=== PATIENT | female | born 1990 | race Caucasian/White ===

== ENCOUNTER 2019-09-13 07:35 | Inpatient (IN) ==
[2019-09-13] MEDS ORDERED: OXYTOCIN 30 UNITS/500 ML BAG IV PRN ×3 (07:55→19:46)
--- NOTE | 2019-09-13 08:12 | History & Physical Report ---
Date of Service September 13, 2019 Assessment & Plan (1) : 29 yo @ 39.2 here for IOL complicated by IUGR, h/o preeclampsia - admits, IV, labs - continue to augment as needed Labs: GBS -, A+, antibody negative, HIV negative, Rubella immune, RPR non reactive, Hep B -, G/C not detected H/O pre-eclampsia on 81 mg ASA since 12 weeks - asymptomatic, BP wnl - continue to monitor Fetus - FHTScategory 1 - continue monitoring History of Present Illness Chief Complaint: IOL Primary Care Provider: ESPERANZA Carrasco Rhona Hannon is a 29 yo @ 39 weeks 2 days here for induction complicated by IUGR and history of pre eclampsia with a prior . She has not had any elevated blood pressures this . She has not felt any contractions, no loss of fluid, no bleeding, no loss of mucus plug. She is taking 81 mg of ASA that she has taken since 12 weeks of . She denies any allergies. She breastfeed her prior babies and plans to breastfeed. Allergies Allergy/AdvReac Type Severity Reaction Status Date / Time No Known Allergies Allergy Verified 09/09/19 08:29 Home Medications Home Medications Medication Instructions Recorded Confirmed Type prenat.vits,spencer,kuo-eefq-yoqhy 1 tab PO DAILY 02/25/19 09/13/19 History aspirin 1 cap PO DAILY MDD 81 04/04/19 09/13/19 History breast pump #1 ea 08/22/19 09/09/19 Rx breast pump #1 ea 09/06/19 09/09/19 Rx Patient History Medical History Elevated blood pressure affecting , antepartum (Resolved) Encounter for anatomic survey Gestational hypertension w/o significant proteinuria in 3rd trimester (Resolved) History of chlamydia History of pre-eclampsia History of varicella Family History Mother Hypertension Son Hirschsprung's disease Social History Preferred Language: Kyrgyz Communication Ability: Effective Manager Dairy Required: No Beliefs That Will Affect Care: None marital status: marital status details: Daniel Hannon (30) [phone] Current Living Situation: Spouse Current Living Situation Comment: with children, 2 dogs, 1 cat, changing litter current occupational status: employed current occupation: message therapist Other Information That Helps Us Care for You: No Feels Safe at Home: Yes Safety Concerns: Feels Safe At This Time Smoking Status: Former smoker Hx Alcohol Use: No Hx Substance Use: No Review of Systems Denies fever, chills, sweats Denies shortness of breath, difficulty breathing, chest pain, palpitations, chest pressure. Denies dysuria. Denies headache. Denies: double vision, RUQ pain, lower extremity swelling Physical Exam Physical Exam: General: Alert, oriented. No acute distress. Cardiac: Regular rate and rhythm, no murmurs/rubs/gallops. Respiratory: Clear to auscultation anterior and posteriorly, no wheezes/rales/rhonchi. No increased work of breathing. Symmetrical chest rise. No respiratory distress. Abdomen: Gravid, Vertex, Bowel sounds present. Lower Extremities: No lower extremity edema or swelling. No deep calf pain. Genie's negative bilaterally. Results & Data Vital Signs (Past 12 Hours) Vital Signs Pulse BP 09/13/19 07:41 83 119/66 Monitoring External Monitor Category 1 - baseline rate 150 - moderate variability - no early decelerations, no late decelerations, no variable decelerations Supervising Physician Co-Signing Physician Notes Resident Physician Supervision Note: I interviewed and examined the patient. Discussed with Dr. Bernal and agree with findings and plan as documented in the note. Any exceptions or clarifications are listed here: Patient is a 29yowf being induced today for suspected IUGR. Testing has been reassuring. Reassuring testing. Cervix favorable--4/75/-2, efw 6-7#, fetus category one. Anticipate . Documented By: Brielle Mayes MD, FACOG Resident Activity Tracking Resident Involvement: Resident Care Provided Care Provided: OB Delivery
[2019-09-13 08:28] LABS: Hematocrit (blood only) 30.9 % (37-47); Mean Corpuscular Hemoglobin 28.6 pg (25-34); Mean Corpuscular Volume 88.3 fL (80-100); Mean Platelet Volume 10.9 fL (7.4-10.4); Platelet Count 241 K/uL (130-400); RDW Coefficient of Variation 14.5 % (11.5-14.5); RDW Standard Deviation 46.6 fL (36.4-46.3); White Blood Count 6.96 K/uL (4.8-10.8)
[2019-09-13 08:29] LABS: Mean Corpuscular Hgb Conc 32.4 g/dL (32-36)
[2019-09-13] MEDS: LACTATED RINGER'S 1,000 ML IV PRN ×3 (09:05→18:10)
--- NOTE | 2019-09-13 11:54 | Labor Progress Brief Note ---
Date of Service September 13, 2019 Subjective noting some contractions Assessment & Plan (1) IUGR (intrauterine growth restriction) affecting care of mother: continue current management. Hopes to go unmedicated. fetus category one. anticipate . Physical Exam Constitutional: WD/WN, vitals as above Psychiatric: A+Ox3, euthymic affect Genitourinary: cx--unchanged arom--copious clear toco--q2-3min, pit at 10 efm--150s with mod variability, accels to 180s, no decels Results & Data Vital Signs (Past 12 Hours) Vital Signs Temp Pulse Resp BP 09/13/19 11:10 36.8 C 71 18 112/66 09/13/19 10:08 84 121/74 09/13/19 09:04 79 16 125/58 L 09/13/19 07:41 36.5 C 83 18 119/66 09/13/19 07:33 36.5 C 18 Coding Level of Care Code None Diagnoses IUGR (intrauterine growth restriction) affecting care of mother O36.5990
--- NOTE | 2019-09-13 15:13 | Labor Progress Brief Note ---
Date of Service September 13, 2019 Subjective Getting uncomfortable Assessment & Plan (1) IUGR (intrauterine growth restriction) affecting care of mother: Continue current management. fetus category one. anticipate . Physical Exam Constitutional: WD/WN, vitals as above Psychiatric: A+Ox3, euthymic affect Genitourinary: cx--//-2 toco--q2-4min, efm--135 with mod variability, accels to 150s, no decels Results & Data Vital Signs (Past 12 Hours) Vital Signs Temp Pulse Resp BP 09/13/19 14:58 36.5 C 71 20 121/69 09/13/19 14:06 71 18 125/73 09/13/19 12:51 36.7 C 71 20 124/65 09/13/19 12:07 74 18 113/62 09/13/19 11:10 36.8 C 71 18 112/66 09/13/19 10:08 84 121/74 09/13/19 09:04 79 16 125/58 L 09/13/19 07:41 36.5 C 83 18 119/66 09/13/19 07:33 36.5 C 18 Coding Level of Care Code None Diagnoses IUGR (intrauterine growth restriction) affecting care of mother O36.5990
[2019-09-13] MEDS ORDERED: fentaNYL citrate 100 MCG/2 ML VIAL ONE (16:01)
[2019-09-13] MEDS ORDERED: BUPIVACAINE 0.25% 30 ML VIAL ONE (16:01)
[2019-09-13] MEDS ORDERED: ePHEDrine sulfate 50 MG/ML AMP ONE (16:01)
[2019-09-13] MEDS ORDERED: fentaNYL 2MCG/ML ROPIV 1.25MG/ML 100 ML BAG EPI ONE (16:02)
--- NOTE | 2019-09-13 16:11 | Anesthesiology Consultation ---
Date of Service September 13, 2019 Assessment & Plan (1) Encounter for pre-operative examination: Chart Review Chart Review: Acceptable Risk for Labor Epidural History Height/Weight Height: 5 ft Weight: 72.121 kg Allergies Allergy/AdvReac Type Severity Reaction Status Date / Time No Known Allergies Allergy Verified 09/09/19 08:29 Medications Home Medications Medication Instructions Recorded Confirmed Last Taken prenat.vits,spencer,bpu-quoi-vsmdj 1 tab PO DAILY 02/25/19 09/13/19 1 Day Ago ~09/12/19 aspirin 1 cap PO DAILY MDD 81 04/04/19 09/13/19 1 Day Ago ~09/12/19 breast pump #1 ea 08/22/19 09/09/19 Unknown breast pump #1 ea 09/06/19 09/09/19 Unknown Active Medications Generic Name Dose Route Start Last Admin Trade Name Freq PRN Reason Stop Dose Admin Lactated Ringer's 1,000 mls @ 125 mls/hr 09/13/19 07:55 09/13/19 15:51 Lr IV 09/15/19 07:54 125 mls/hr .Q8H PRN Administration L&D Protocol Protocol Oxytocin 30 units in 500 mls @ 16 mls/hr 09/13/19 07:55 09/13/19 15:00 Pitocin IV 09/15/19 07:54 0.96 units/hr .Q24H PRN 16 mls/hr Labor Induction/Augmentation Titration Protocol 0.96 UNITS/HR NPO Last Intake of Fluids Comment: Sips Date Last Intake of Solids: 09/12/19 Past Medical History Medical History Elevated blood pressure affecting , antepartum (Resolved) Encounter for anatomic survey Gestational hypertension w/o significant proteinuria in 3rd trimester (Resolved) History of chlamydia History of pre-eclampsia History of varicella Past Family History Family History Mother Hypertension Son Hirschsprung's disease Social History Smoking Status: Former smoker Hx Alcohol Use: No alcohol intake frequency: 0-2 drinks per day Hx Substance Use: No substance use type: does not use Physical Exam Vital Signs Last Vital Signs Temp 36.5 C 09/13/19 14:58 Pulse 71 09/13/19 14:58 Resp 20 09/13/19 14:58 BP 121/69 09/13/19 14:58 Testing Laboratory Results 09/13/19 08:06
[2019-09-13] MEDS ORDERED: NALOXONE HCL 1 MG in SODIUM CHLORIDE 0.9% 1000ML 1,000 ML IV PRN (16:46)
[2019-09-13] MEDS ORDERED: ePHEDrine sulfate 50 MG/ML AMP IV PRN (16:46)
[2019-09-13] MEDS ORDERED: fentaNYL 2MCG/ML ROPIV 1.25MG/ML 100 ML BAG EPI PRN (16:46)
[2019-09-13] MEDS ORDERED: NALOXONE HCL 0.4 MG/1 ML VIAL/CARP IV PRN (16:46)
[2019-09-13] MEDS ORDERED: ONDANSETRON INJ 2 MG/ML 2 ML VIAL IV PRN (16:46)
--- NOTE | 2019-09-13 17:30 | Labor Progress Brief Note ---
Date of Service September 13, 2019 Subjective comfortable Assessment & Plan (1) IUGR (intrauterine growth restriction) affecting care of mother: continue current management. fetus category two, reassuring, anticipate . Physical Exam Constitutional: WD/WN, vitals as above Psychiatric: A+Ox3, euthymic affect Genitourinary: cx--8/0 toco--q2-3, pit at 12 efm--130s with mod variability, variables with contractions, +scalp stim Results & Data Vital Signs (Past 12 Hours) Vital Signs Temp Pulse Resp BP Pulse Ox 09/13/19 17:23 58 L 98 09/13/19 17:18 64 98 09/13/19 17:13 63 98 09/13/19 17:08 63 97 09/13/19 17:06 61 114/59 L 09/13/19 17:03 80 98 09/13/19 16:58 63 96 09/13/19 16:54 87 120/68 09/13/19 16:53 82 98 09/13/19 16:49 100 H 115/64 09/13/19 16:48 101 H 118/67 96 09/13/19 16:44 36.5 C 78 18 119/67 09/13/19 16:43 75 97 09/13/19 16:42 99 H 93 09/13/19 16:39 80 118/58 L 09/13/19 16:38 77 97 09/13/19 16:33 75 133/86 100 09/13/19 16:28 68 145/83 H 97 09/13/19 16:23 71 149/104 H 100 09/13/19 16:16 66 139/68 09/13/19 14:58 36.5 C 71 20 121/69 09/13/19 14:06 71 18 125/73 09/13/19 12:51 36.7 C 71 20 124/65 09/13/19 12:07 74 18 113/62 09/13/19 11:10 36.8 C 71 18 112/66 09/13/19 10:08 84 121/74 09/13/19 09:04 79 16 125/58 L 09/13/19 07:41 36.5 C 83 18 119/66 09/13/19 07:33 36.5 C 18 Coding Level of Care Code None Diagnoses IUGR (intrauterine growth restriction) affecting care of mother O36.5990
--- NOTE | 2019-09-13 19:15 | Delivery Summary ---
Vaginal Delivery Summary Date of Service September 13, 2019 Vaginal Delivery Summary Pre-operative Diagnosis: at 39 weeks iugr Post-operative Diagnosis: same Procedure: pitocin induction arom epidural EBL: 300cc Anesthesia: epidural Procedure: The patient pushed for one contraction to deliver a viable male in doa position. The nose and mouth were bulb suctioned on the perineum. A tight nuchal cord was clamped and cut on the perineum. The rest of the baby was then delivered without difficulty. The baby was vigorous. The nose and mouth were again bulb suctioned and the infant was placed in the maternal abdomen for drying and attention. Cord blood and segment obtained. Placenta delivered spontaneous, intact with a three vessel cord. Cervix/sulci/rectum/perineum were intact. Hemostasis obtained with dilute pitocin and fundal massage. Apgars were 8/9. Mother and baby doing well at the end of the delivery. [facility] [place] Vaginal Delivery Charge Vaginal Delivery Codes: 36048 global code for the antepartum, delivery, and post-
[2019-09-13] MEDS ORDERED: OXYCODONE/ACETAMINOPHEN 5mg/325mg TAB PO PRN (19:37)
[2019-09-13] MEDS ORDERED: BENZOCAINE 20% AER SPR 82.5 GM CAN EXT PRN (19:46)
[2019-09-13] MEDS ORDERED: SUPERCREAM 0.870% 15 GM JAR EXT PRN (19:46)
[2019-09-13] MEDS ORDERED: DIPHTHERIA/TETANUS/PERTUSSIS 0.5 ML SYR/VIAL IM ONE (19:46)
[2019-09-13] MEDS ORDERED: HYDROCORTISONE ACETATE 25 MG SUPP PR PRN (19:46)
--- NOTE | 2019-09-13 20:10 | Anesthesia Procedure Note ---
Date of Service September 13, 2019 Anesthesia Post Epidural Note Vital Signs Vital Signs: Temp Pulse Resp BP Pulse Ox 36.5 C 76 20 128/84 98 09/13/19 16:44 09/13/19 19:57 09/13/19 19:57 09/13/19 19:57 09/13/19 19:08 Pain Intensity Bilateral Abdomen: Pain Intensity: 0 Notes Mental Status: alert / awake / arousable and participated in evaluation Nausea / Vomiting: adequately controlled Pain: adequately controlled Airway Patency, RR, SpO2: stable & adequate BP & HR: stable & adequate Hydration State: stable & adequate Neuraxial Anesthesia: was administered and sensory block is resolving Anesthetic Complications: no major complications apparent Epidural: Removed without complications and With tip intact
[2019-09-13] MEDS: IBUPROFEN 600 MG TAB PO PRN (20:46)
[2019-09-13] MEDS: DOCUSATE SODIUM 100 MG CAP PO SCH (21:29)
[2019-09-14] MEDS: IBUPROFEN 600 MG TAB PO PRN ×4 (03:18→20:52)
[2019-09-14] MEDS: ACETAMINOPHEN 325 MG TAB PO PRN ×3 (05:48→18:08)
[2019-09-14 05:52] LABS: Hematocrit (blood only) 27.6 % (37-47); Hemoglobin 9.1 g/dL (12.0-16.0)
--- NOTE | 2019-09-14 06:28 | Obstetrical Progress Note ---
Date of Service September 14, 2019 Assessment & Plan Admission and Anticipated Discharge Date Admission Date: September 13, 2019 29 yo s/p induced VD @ 39.2 complicated by suspected IUGR and H/O pre eclampsia with prior - PPD# 1 - GBS -, Blood Type A+ - Feels well today. Eating well, voiding well, ambulating well. - Pain well controlled. - Routine post care - After discharge will have [address] Mayes. Supervising Physician Co-Signing Physician Notes Resident Physician Supervision Note: I interviewed and examined the patient. Discussed with Dr. Bernal and agree with findings and plan as documented in the note. Any exceptions or clarifications are listed here: Doing well. Routine pp care. Documented By: Brielle Mayes MD, FACOG Subjective Rhona Hannon is doing well this morning, she is walking, voiding, passing gas and eating a regular diet without nausea. Her bleeding is described as a heavy period. She is and describes it as going, "pretty good". pain is a 3/10. She did not have any questions this morning. Review of Systems Review of Systems: Denies fever, chills, sweats Denies shortness of breath, difficulty breathing, chest pain, palpitations, chest pressure. Denies breast pain. Denies dysuria. Denies headache. Physical Exam Physical Exam: General: Alert, oriented. No acute distress. Cardiac: Regular rate and rhythm, no murmurs/rubs/gallops. Respiratory: Clear to auscultation anterior and posteriorly, no wheezes/rales/rhonchi. No increased work of breathing. Symmetrical chest rise. No respiratory distress. Abdomen: Soft, nontender, nondistended. Bowel sounds present. Uterus: Uterine fundus firm, palpable 1 cm below umbilicus. Lower Extremities: No lower extremity edema or swelling. No deep calf pain. Genie's negative bilaterally. Results & Data ([facility]) Vital Signs (Past 12 Hours) Vital Signs Temp Pulse Pulse Resp BP BP BP 09/14/19 04:19 36.4 C L 66 20 128/83 09/14/19 04:00 155/102 H 150/94 H 09/13/19 23:30 36.4 C L 66 16 112/68 09/13/19 21:54 37.0 C 93 H 20 121/76 05/26/20 21:45 93 H 20 121/76 0520 21:34 93 H 121/76 05/20 21:27 89 118/78 0520 21:12 107 H 20 131/85 0520 20:57 111 H 127/78 0520 20:42 113 H 20 128/82 0520 20:27 90 117/80 0520 20:12 80 20 127/84 0520 19:57 76 20 128/84 0520 19:46 74 122/60 05 19:42 78 20 125/75 0520 19:27 78 20 125/75 05 19:12 82 20 133/85 05 19:08 80 05 19:04 106 H 09/13/19 19:03 109 H 09/13/19 18:58 83 09/13/19 18:53 89 09/13/19 18:48 85 09/13/19 18:45 18 09/13/19 18:43 76 05 18:38 74 05 18:34 76 09/13/19 18:33 72 05 18:29 71 120/67 05 18:28 93 H 09/13/19 18:23 72 Pulse Ox 09/14/19 04:19 09/14/19 04:00 09/13/19 23:30 09/13/19 21:54 05 21:45 05 21:34 05 21:27 05 21:12 0520 20:57 05 20:42 0520 20:27 05 20:12 05 19:57 05 19:46 05 19:42 05 19:27 05 19:12 05 19:08 98 09/13/19 19:04 90 05 19:03 98 09/13/19 18:58 100 05 18:53 100 09/13/19 18:48 99 05 18:45 09/13/19 18:43 98 09/13/19 18:38 99 09/13/19 18:34 91 09/13/19 18:33 100 09/13/19 18:29 09/13/19 18:28 99 09/13/19 18:23 99 Resident Activity Tracking Resident Involvement: Resident Care Provided Care Provided: OB Delivery
[2019-09-14] MEDS: DOCUSATE SODIUM 100 MG CAP PO SCH ×2 (08:02→20:51)
[2019-09-14] MEDS: PRENATAL VITAMIN 1 TAB PO SCH (08:02)
[2019-09-14] MEDS ORDERED: bisacodyL 5 MG TABEC PO SCH (20:00)
[2019-09-15] MEDS: ACETAMINOPHEN 325 MG TAB PO PRN (02:35)
--- NOTE | 2019-09-15 05:08 | Obstetrical Progress Note ---
Date of Service September 15, 2019 Assessment & Plan Admission and Anticipated Discharge Date Admission Date: September 13, 2019 29 yo s/p VD @ 39.2 w/ suspected IUGR and H/O pre eclampsia with prior post blues vs. depression w/ depressed mood and tearful affect - denies SI/HI - discussed antidepressants but patient deferred at this time - discussed precautions if she develops SI/HI, feels down or depressed passed 2 weeks to call the office - pt. would like to be discharged today and feels safe to go home - PPD# 2 - GBS -, Blood Type A+ - Feels well today. Eating well, voiding well, ambulating well. - Pain well controlled. - Routine post care - After discharge will have [address] Myaes. Supervising Physician Co-Signing Physician Notes Resident Physician Supervision Note: I was present with Dr. Vogel during the history and exam. I discussed the case with the resident and agree with the findings and plan as documented in the note. Any exceptions or clarifications are listed here: She was tearful last night, but better this am. Not suicidal. Discussed antidepressants, counselling, she declines Documented By: Compa Alvarez MD, FACOG Subjective Rhona Hannon was feeling down this morning after having difficulty with . She had been crying earlier in the morning and explained that she had post depression with a prior . After reviewing post blues and post depression she said that she felt okay but was tired this morning. She denied any thoughts of hurting herself or anyone else. She is walking, voiding, passing gas and eating a regular diet without nausea. Her bleeding is described as a heavy period. She is and describes it as going, "pretty good". pain is well controlled. She did not have any questions this morning. Review of Systems Review of Systems: Denies fever, chills, sweats Denies shortness of breath, difficulty breathing, chest pain, palpitations, chest pressure. Denies breast pain. Denies dysuria. Denies headache. Physical Exam Physical Exam: General: Alert, oriented. No acute distress. Cardiac: Regular rate and rhythm, no murmurs/rubs/gallops. Respiratory: Clear to auscultation anterior and posteriorly, no wheezes/rales/rhonchi. No increased work of breathing. Symmetrical chest rise. No respiratory distress. Abdomen: Soft, nontender, nondistended. Bowel sounds present. Uterus: Uterine fundus firm, palpable 1 cm below umbilicus. Lower Extremities: No lower extremity edema or swelling. No deep calf pain. Genie's negative bilaterally. Results & Data ([facility]) Vital Signs (Past 12 Hours) Vital Signs Temp Pulse Resp BP Pulse Ox 09/14/19 23:10 36.7 C 68 18 116/81 98 09/14/19 19:30 36.7 C 73 18 112/77 98 Resident Activity Tracking Resident Involvement: Resident Care Provided Care Provided: OB Delivery
[2019-09-15] MEDS: PRENATAL VITAMIN 1 TAB PO SCH (08:18)
[2019-09-15] MEDS: DOCUSATE SODIUM 100 MG CAP PO SCH (08:18)
[2019-09-15] MEDS: IBUPROFEN 600 MG TAB PO PRN (08:19)
[2019-09-15] MEDS ORDERED: bisacodyL 10 MG SUPP PR PRN (09:00)
== END 2019-09-15 12:59 | disposition home or self-care (01) | DRG 807 ==
LOC: 4S1 07:35 → 4S2 21:53